=== PATIENT | male | born 1990 | race African-American/Black ===

== ENCOUNTER 2019-02-06 13:02 | Emergency (ER) | payer MEDICAID ==
[~2019-02-06] VITALS: Ht 177.8 cm; Wt 86.2 kg
[2019-02-06] MEDS ORDERED: IOHEXOL 300 MG/ML 100ML BOTTLE IJ ONE (13:30)
[2019-02-06 13:57] LABS: Basophils # (auto) 0.1 uL; Basophils % (auto) 1.5 % (0.0-2.0); Eosinophils # (auto) 0.1 uL; Eosinophils % (auto) 2.4 % (0.0-7.0); Hematocrit 48.8 % (41.0-53.0); Hemoglobin 16.8 g/dL (13.5-17.5); Lymphocytes # (auto) 1.2 uL; Lymphocytes % (auto) 30.9 % (10.0-50.0); Mean Corpuscular Hemoglobin 32.3 pg (28.0-32.0); Mean Corpuscular Hgb Conc. 34.5 g/dL (32.0-36.0); Mean Corpuscular Volume 93.5 fL (80.0-100.0); Monocytes # (auto) 0.6 uL; Monocytes % (auto) 14.5 % (0.0-12.0); Neutrophils # (auto) 1.9 uL; Neutrophils % (auto) 50.7 % (37.0-80.0); Nucleated Red Blood Cells % 0.2 %; Platelet Count (auto) 341 10^3/uL (140-450); Red Blood Cells 5.22 10^6/uL (4.5-5.90); White Blood Cell 3.8 10^3/uL (4.4-10.8)
[2019-02-06 14:10] LABS: Potassium 3.8 mmol/L (3.5-5.1)
[2019-02-06 14:16] LABS: Albumin 4.3 g/dL (3.4-5.0); BUN/Creatinine Ratio 14.3; Bilirubin, Total 0.7 mg/dL (0.2-1.0); Calcium 9.1 mg/dL (8.5-10.1); Total Protein 8.1 g/dL (6.4-8.2)
[2019-02-06 14:22] LABS: Urine Bacteria NONE SEEN /hpf (None Seen); Urine Blood Negative /uL (Negative); Urine Specific Gravity 1.033 (1.001-1.035); Urine WBC 11 /hpf (0 - 3)
[2019-02-06 14:53] VITALS: BP 124/71
== END 2019-02-06 14:53 | disposition home or self-care (01) ==
LOC: ER 13:10
DX: K40.90 Unilateral inguinal hernia, without obstruction or gangrene, not specified as recurrent (principal); N39.0 Urinary tract infection, site not specified; F12.90 Cannabis use, unspecified, uncomplicated
CPT/HCPCS: 36415; 74177; 80053; 81001; 85025; 94761; 99284; Q9967

== ENCOUNTER 2019-07-22 14:04 | Inpatient (IN) | payer SELFPAY ==
[~2019-07-22] VITALS: Ht 177.8 cm; Wt 88.9 kg
[2019-07-22 14:58] LABS: Basophils # (auto) 0 uL; Basophils % (auto) 0.9 % (0.0-2.0); Eosinophils # (auto) 0 uL; Hematocrit 45.2 % (41.0-53.0); Hemoglobin 16.3 g/dL (13.5-17.5); Lymphocytes # (auto) 0.6 uL; Lymphocytes % (auto) 12.1 % (10.0-50.0); Mean Corpuscular Hemoglobin 33.2 pg (28.0-32.0); Mean Corpuscular Hgb Conc. 36.1 g/dL (32.0-36.0); Monocytes # (auto) 0.3 uL; Monocytes % (auto) 6.3 % (0.0-12.0); Neutrophils # (auto) 4.1 uL; Neutrophils % (auto) 80.7 % (37.0-80.0); Platelet Count (auto) 351 10^3/uL (140-450); Red Blood Cells 4.91 10^6/uL (4.5-5.90); Red Cell Distribution Width 12.4 % (11.8-14.3); White Blood Cell 5.1 10^3/uL (4.4-10.8)
[2019-07-22 15:00] LABS: Urine Bacteria NONE SEEN /hpf (None Seen); Urine Blood Negative /uL (Negative); Urine Mucus FEW (None Seen); Urine Specific Gravity 1.028 (1.001-1.035); Urine WBC 3 /hpf (0 - 3)
[2019-07-22 15:15] LABS: Albumin 4.6 g/dL (3.4-5.0); Calcium 9.5 mg/dL (8.5-10.1); Potassium 3.9 mmol/L (3.5-5.1)
[2019-07-22 15:17] LABS: Amphetamine Screen, Urine NEGATIVE (NEGATIVE); Barbiturate Scree,Urine NEGATIVE (NEGATIVE); Benzodiazephine Screen, Urine NEGATIVE (NEGATIVE); Cannabinoid Screen, Urine POSITIVE (NEGATIVE); Cocaine Screen, Urine NEGATIVE (NEGATIVE); Opiate Scree,Urine NEGATIVE (NEGATIVE); Phencyclidine Screen, Urine NEGATIVE (NEGATIVE)
[2019-07-22 15:18] LABS: BUN/Creatinine Ratio 13.2; Bilirubin, Total 0.6 mg/dL (0.2-1.0); Total Protein 8.4 g/dL (6.4-8.2)
[2019-07-22] MEDS ORDERED: SODIUM CHLORIDE 0.9% 1,000 ML IVB ONE (15:27)
[2019-07-22] MEDS ORDERED: ONDANSETRON HCL 4 MG/2 ML VIAL IV ONE (15:30)
[2019-07-22 16:13] LABS: Amylase 93 U/L (25-115); Lipase 80 U/L (73-393)
[2019-07-22] MEDS ORDERED: PANTOPRAZOLE 40 MG/10 ML VIAL INJ IV ONE (16:15)
[2019-07-22] MEDS ORDERED: metroNIDAZOLE 500MG/100ML 100 ML IV ONE (17:30)
[2019-07-22] MEDS ORDERED: cefTRIAXone 1GM/50ML D5W 50 ML IV ONE (17:30)
[2019-07-22] MEDS ORDERED: MORPHINE SULF INJ 2 MG/ML SYRINGE 1ML IV PRN (19:15)
[2019-07-22] MEDS ORDERED: HYDROcodone-ACET 5/325MG TAB PO PRN (19:15)
[2019-07-22] MEDS ORDERED: TEMAZEPAM 15 MG CAP PO PRN (19:15)
[2019-07-22] MEDS ORDERED: ACETAMINOPHEN 500 MG TAB PO PRN (19:15)
[2019-07-22] MEDS ORDERED: LEVOFLOXACIN 500MG 100 ML IV ONE (19:15)
[2019-07-22] MEDS ORDERED: FOLIC ACID 1 MG, MULTIPLE VITAMIN 10 ML, MAGNESIUM SULF SDV 50% 8 MEQ, THIAMINE INJ 100... INJ SCH ×5 (19:15)
[2019-07-22] MEDS ORDERED: ONDANSETRON HCL 4 MG/2 ML VIAL IV PRN (19:15)
--- NOTE | 2019-07-22 20:16 | NUR ---
Opening Shift Note Received sbar report from ED nurse. Assumed care of patient, awake, alert, and orientated x 4. No S/S of distress/SOB or pain. Family is at bedside. Bed brakes locked, and bed is in lowest position. Side rails are up x 2 and call light is with in reach. Hob is 30 degrees. Instructed on POC and to call for assist PRN, will continue to monitor for changes Q1hr and PRN.
[2019-07-22 22:00] VITALS: BP 142/82
[2019-07-23 04:53] VITALS: BP 139/84
[2019-07-23] MEDS ORDERED: metroNIDAZOLE 500MG/100ML 100 ML IV SCH (06:00)
--- NOTE | 2019-07-23 07:30 | NUR ---
Opening Shift Note Assumed care of patient, awake and alert. No S/S of distress/SOB or pain. Bed is in lowest position, breaks on, and bed rails 2x. Instructed on POC and to call for assist PRN, will continue to monitor for changes Q1hr and PRN.
--- NOTE | 2019-07-23 07:34 | NUR ---
CLOSING NOTES ENDORSED CARE TO DAY SHIFT NURSE[facility]OO[facility].
--- NOTE | 2019-07-23 08:12 | NUR ---
Ambulating Patient is ambulating in the [facility] hallways. Patient has no s/s of distress or pain. Will continue to monitor patient.
[2019-07-23 08:58] VITALS: BP 155/93
[2019-07-23 09:13] VITALS: BP 149/94
[2019-07-23] MEDS ORDERED: FAMOTIDINE 20 MG TAB PO SCH (10:00)
[2019-07-23 12:18] VITALS: BP 149/94
[2019-07-23 12:40] VITALS: BP 151/72
--- NOTE | 2019-07-23 12:40 | NUR ---
Discharge instructions given as ordered. Encourage to follow up with PMD as instructed, Molly Levy/ Patient Continue [employer]. All questions and concerns addressed. Patient verbalized understanding. Medication reconciliation form completed and copy given to patient. No home medications held in Pharmacy, and no needed vaccines to be given. IV removed with catheter intact, pressure dressing applied.
--- NOTE | 2019-07-23 12:47 | NUR ---
Patient walked out of the hospital with all personal belongings, accompanied by a family member. No distress noted at time of departure.
== END 2019-07-23 12:45 | disposition home or self-care (01) | DRG 392 ==
LOC: ER 14:10 → OVERFLOW 14:11 → WEST WING 20:03
PROVIDERS: ADMIT Nurse Practitioner Acute Care; ATTEND Nurse Practitioner Acute Care
DX: K52.9 Noninfective gastroenteritis and colitis, unspecified (principal); F10.10 Alcohol abuse, uncomplicated; F19.10 Other psychoactive substance abuse, uncomplicated; F12.10 Cannabis abuse, uncomplicated
CPT/HCPCS: 36415; 74176; 80053; 80307; 81001; 82150; 83690; 85025; C9113; G0378; J0696; J1956; J2405; J3490